=== PATIENT | male | born 1995 | race Caucasian/White ===

== ENCOUNTER → 2022-08-26 | Day surgery (SDC) | payer OTHER ==
[~2022-08-26] MED LIST: DEXMEDETOMIDINE HCL 2 ML ONE; FENTANYL CITRATE/PF 100MCG/2 ML INJ ONE; KETOROLAC TROMETHAMINE 30 MG/ML VIAL ONE; LEVOTHYROXINE50 MCG PO; LIDOCAINE 1% W/EPINEPHRINE 20 ML VIAL ONE; MIDAZOLAM HCL 2 MG/2 ML VIAL ONE; MUPIROCIN 2% OINT 22 GM TUBE ONE; OXYMETAZOLINE HCL 0.05% NAS 1 SPRAY BTL ONE; SODIUM CHLORIDE/ALOE VERA 14.1GM NASAL GEL ONE
[2022-08-26 10:20] VITALS: BP 96/62
== END | disposition home or self-care (01) ==
LOC: OR 06:41
PROVIDERS: ATTEND Otolaryngology
DX: J34.2 Deviated nasal septum (principal); J34.89 Other specified disorders of nose and nasal sinuses; J34.3 Hypertrophy of nasal turbinates; E03.9 Hypothyroidism, unspecified; T78.40XA Allergy, unspecified, initial encounter; F41.9 Anxiety disorder, unspecified; X58.XXXA Exposure to other specified factors, initial encounter; Z79.899 Other long term (current) drug therapy
CPT/HCPCS: 30140; 30520; C1713; J1885; J2250; J3010